=== PATIENT | female | born 1950 | race Caucasian/White ===

== ENCOUNTER 2017-06-14 04:12 | Emergency (ER) | payer BC ==
--- NOTE | 2017-06-14 04:29 | EDM.PDOC ---
ED HPI GENERAL MEDICAL PROBLEM - General Chief Complaint: Neck Problem Stated Complaint: [facility] Time Seen by Provider: 06/14/17 04:13 Source of Information: Reports: Patient, EMS History Limitations: Reports: Altered Mental Status (not oriented to time or place. ), Other (slow to answeer questions. Unsure waht has happened to her .) - History of Present Illness INITIAL COMMENTS - FREE TEXT/NARRATIVE: 67-year-old female brought to the ED by [facility] who intercepted with [facility]. Patient apparently collapsed at home. Was able to glean further information once her arrived. He reports that shortly before 3:00 this morning she came to his bedroom door. He is sleeping in the spare room is eased up so often checking calves this time of year. She asked Adelso did you call me and he reported to her that he had not. She then suddenly collapsed completely onto the carpeted floor face first I used syncopal episode with collapse. He jumped out of bed and attended her. He found her right arm to be fully extended while she was lying on the floor and it was rigid he could not move it. He had difficulty rolling over back onto her back. After this then she started to exhibit tonic-clonic movement of the right upper extremity he did notice that she had any tonic-clonic activity and any other extremity i.e. focal seizure. He states this lasted between 5 and 10 minutes. During this timeframe he recognized the need help and he got up and called 911. [facility] arrived on scene. Not witnessed any tonic-clonic activity of her arm at that time. She was unresponsive verbally. She would make the occasional moaning voice. En route to [facility] she began to come around and was able to slowly speak. She was disoriented to place and time and had no recollection of what happened to her. She started to speak more and become more understandable en route to [facility] according to the [facility] paramedics. Blood sugar on scene was 178. She is known to be a type II diabetic controlled with multiple medications. She has known renal insufficiency. She has known cardiac disease having had bypass surgery once in the past and known claudication symptoms due to peripheral vascular disease in her lower extremities. She therefore is a prime candidate for CVA. She has chronic hypertension and hypercholesterolemia. On initial evaluation in the ED she arrives a c-collar in place. She is able to answer a few questions slowly she was commands very well. She could move all of her extremities with coordinated effort. A stroke alert was called. She was therefore taken to CT suite immediately after my initial assessment. Initial vital signs reveal BP 126/76. Heart rate is 70 and sinus. O2 sats 97% on room air. Onset: Today Onset Date: 06/14/17 Onset Time: 02:55 Duration: Minutes: Location: Reports: Other (Syncope collapsed to the floor with focal seizure activity of the right upper extremity witnessed by her .) Severity: Moderate Improves with: Reports: Other (Nonverbal for about 10-15 minutes and started to become verbal en route to [facility] in the embolus.) Context: Reports: Trauma (Collapsed to the floor suddenly face first with no attempt to protect herself. Subsequent development of time the city rigidity of the right upper extremity and then development of tonic-clonic seizure activity that lasted between 5 and 10 minutes according to the ) Associated Symptoms: Reports: Confusion Treatments DIAMOND CLEAVER: Reports: Other (see below) (Patient has received no medications per paramedics.) - Related Data Allergies Allergy/AdvReac Type Severity Reaction Status Date / Time SEVERO Inhibitors Allergy Cough Verified 06/14/17 05:04 acetaminophen [From Ultracet] Allergy Dizziness Verified 06/14/17 05:04 baclofen Allergy Hallucinati Verified 06/14/17 05:04 ons codeine Allergy Itching Verified 06/14/17 05:04 fentanyl Allergy Itching Verified 06/14/17 05:04 fluoxetine [From Prozac] Allergy Rash Verified 06/14/17 05:04 meperidine [From Demerol] Allergy Itching Verified 06/14/17 05:04 morphine Allergy Itching Verified 06/14/17 05:04 oxycodone Allergy Hives Verified 06/14/17 05:04 tramadol [From Ultracet] Allergy Dizziness Verified 06/14/17 05:04 Home Meds: Home Meds Aspirin [Halfprin] 81 mg PO DAILY 06/14/17 [History] Fexofenadine [Hortencia] 180 mg PO DAILY 06/14/17 [History] Folic Acid 800 mcg PO DAILY 06/14/17 [History] Hydrochlorothiazide 12.5 mg PO DAILY 06/14/17 [History] Insulin Aspart [NovoLOG] 1 dose SQ ASDIRECTED 06/14/17 [History] Levothyroxine 25 mcg PO DAILY 06/14/17 [History] Metoprolol Succinate 50 mg PO DAILY 06/14/17 [History] Omeprazole 20 mg PO DAILY 06/14/17 [History] Rosuvastatin [Crestor] 40 mg PO DAILY 06/14/17 [History] Sertraline [Zoloft] 100 mg PO DAILY 06/14/17 [History] Sodium Bicarbonate 650 mg PO DAILY 06/14/17 [History] Ustekinumab [Stelara] 45 mg SQ ASDIRECTED 06/14/17 [History] Past Medical History Cardiovascular History: Reports: Bypass (Triple bypass with wound dehiscence.), High Cholesterol, Hypertension, PVD (Severe peripheral vascular disease.) Respiratory History: Reports: COPD Gastrointestinal History: Reports: GERD, Hiatal Hernia Genitourinary History: Reports: Chronic Renal Insuffiency, Urinary Incontinence (Some stress and urge components) Musculoskeletal History: Reports: Back Pain, Chronic (Chronic low back pain.), Osteoarthritis, Osteoporosis, Other (See Below) (Previous cervical neck fusion previous lumbar spine fusion) Psychiatric History: Reports: Addiction ( reports that she does drink alcohol in large quantities on a daily basis. Patient states she has 3 drinks per day he states more like 3 bottles per day.), Depression Endocrine/Metabolic History: Reports: Diabetes, Type II (On insulin for greater than 15 years for diabetic control.), Hypothyroidism (On levothyroxine) Dermatologic History: Reports: Psoriasis, Other (See Below) Social & Family History - Living Situation & Occupation Living situation: Reports: Occupation: Unemployed [facility] - Review of Systems Review Of Systems: See Below Constitutional: Reports: Malaise, Weakness, Fatigue. Denies: Weight Loss HEENT: Reports: Glasses. Denies: Hearing Loss Respiratory: Reports: Shortness of Breath, Wheezing, Cough (Occasional cough). Denies: Pleuritic Chest Pain (Occasional) Cardiovascular: Reports: Blood Pressure Problem, Dyspnea on Exertion ( Chronically), Lightheadedness (Occasional lightheadedness when she gets up too fast). Denies: Chest Pain, Claudication, Orthopnea (Controlled with medications ) Endocrine: Reports: Fatigue, High Glucose (Intermittent high glucoses greater than 200.) GI/Abdominal: Reports: Constipation (Intermittent positive constipation), Decreased Appetite : Reports: Frequency, Incontinence (Some stress and urge components) Musculoskeletal: Reports: Neck Pain (Running severe low back pain which limits her mobility some severely. Running neck pain. She's had previous cervical fusion C5-6 and 7 with pedicle screws), Back Pain (Chronic back pain which limits her mobility severely. Previous L-spine surgery unclear of hardware present) Skin: Reports: No Symptoms Neurological: Reports: Seizure (Set seizure tonight focal in nature involving right upper extremity.) Psychiatric: Reports: Depression Hematologic/Lymphatic: Reports: Easy Bleeding, Easy Bruising Immunologic: Reports: No Symptoms - Physical Exam Exam: See Below Exam Limited By: Other (Patient could answer questions but was slow to respond. She was accurate in her answers however. She has no recollection of what has happened to her tonight. provided most of the history. Perhaps faint smell of alcohol on her breath.) General Appearance: Alert, No Apparent Distress, Other (C-collar immobilization. ) Eye Exam: Bilateral Eye: Normal Inspection, Nystagmus (No nystagmus elicited.), PERRL (Gaze palsy.) Ears: Normal External Exam, Normal TMs Nose: Normal Inspection, Normal Mucosa, No Blood Throat/Mouth: Other. No: Evidence of Tongue Biting Head Exam: Scalp Hematoma (Left temporal scalp), Facial Swelling (Left periorbital ecchymoses developing. Hematoma present left temporal scalp. This measures 3 cm in diameter. No open lacerations.) Neck: Other Respiratory/Chest: Lungs Clear, Normal Breath Sounds, Chest Non-Tender, Decreased Breath Sounds (Decreased air entry to the lower 30% of lung acosta bilaterally. With the occasional expiratory wheeze.), Other (Obvious pain on from compression of her ribs or sternum.) Cardiovascular: Regular Rate, Rhythm, No Edema, No Gallop, No Murmur, No Rub, Other (Well-healed midline sternotomy incision. It's either been done twice or she had wound dehiscence as it is wider than normal. Sinus rhythm on monitor at 70/m). No: Normal Peripheral Pulses GI/Abdominal: Normal Bowel Sounds, Soft, Non-Tender, No Organomegaly Neuro Exam (Abbreviated): Alert, CN II-XII Intact, Normal Cognition, No Motor/ Sensory Deficits (She can move all limbs without any issues. She did appear to have mild ataxia of the right upper extremity on attempts to do finger to nose assessment. Mild pronator drift on the right side), Other (Babinski's were both downgoing). No: Oriented, Normal Gait DTR: 0: Bicep (R), Patella (R), Achilles (R), Achilles (L), 1+: Bicep (L), Patella (L) Back Exam: Other (She's had previous cervical spine surgery and lumbar spine surgery with well-healed scars. His abrasions or contusions to her back.) Extremities: Normal Inspection, Normal Range of Motion, Non-Tender, No Pedal Edema, Other (No evidence of dislocation or injury to right shoulder. Also able to lift both legs off the gurney with no difficulty holding them against gravity for 3 seconds.) Psychiatric: Flat Affect Skin Exam: Warm, Dry, Intact, Cool, Diaphoretic EKG INTERPRETATION EKG Date: 06/14/17 Time: 04:35 Rhythm: NSR Rate (Beats/Min): 70 [place]: LAD-Left [place] Deviation (Mild left axis deviation of -16) P-Wave: Present QRS: Other (Early R-wave transition suggesting right ventricular per Andrea/ septal hypertrophy pattern. Left ventricular hypertrophy pattern near Q-wave in 3 and aVF. Consider old inferior wall myocardial infarction) ST-T: Other QT: Prolonged (QT moderately prolonged) EKG Interpretation Comments: Abnormal ECG Course - Vital Signs Last Recorded V/S: Last Vital Signs Temp 35.9 C 06/14/17 04:13 Pulse 68 06/14/17 04:13 Resp 18 06/14/17 04:13 BP 118/58 L 06/14/17 04:13 Pulse Ox 97 06/14/17 04:13 - Orders/Labs/Meds Orders: Active Orders 24 hr Category Date Time Status EKG Documentation Completion [RC] STAT Care 06/14/17 05:52 Active Hoskins Catheter Insertion [Insert Urinary Catheter] [OM. Care 06/14/17 05:00 Ordered PC] Q24H Urinary Catheter Assessment [RC] ASDIRECTED Care 06/14/17 05:28 Active Cervical Spine wo Cont [CT] Stat Exams 06/14/17 04:26 Taken Head wo Cont [CT] Stat Exams 06/14/17 04:20 Taken PRO B-TYPE NATRIUR PEPT,BNPPRO [CHEM] Stat Lab 06/14/17 05:10 Ordered Labs: Laboratory Tests 06/14/17 06/14/17 06/14/17 Range/Units 03:17 04:17 04:17 WBC 7.26 (3.98-10.04) K/mm3 RBC 4.55 (3.98-5.22) M/mm3 Hgb 13.7 (11.2-15.7) gm/L Hct 41.4 (34.1-44.9) % MCV 91.0 (79.4-94.8) fl MCH 30.1 (25.6-32.2) pg MCHC 33.1 (32.2-35.5) g/dl RDW Std Deviation 49.3 H (36.4-46.3) fL Plt Count 132 L (182-369) K/mm3 MPV 9.9 (9.4-12.3) fl Neutrophils % (Manual) 55 (40-60) % Band Neutrophils % 0 (0-10) % Lymphocytes % (Manual) 25 (20-40) % Atypical Lymphs % 5 % Monocytes % (Manual) 4 (2-10) % Eosinophils % (Manual) 9 H (0.7-5.8) % Basophils % (Manual) 2 H (0.1-1.2) Platelet Estimate Adequate Plt Morphology Comment Normal Poikilocytosis 1+ slight Anisocytosis 1+ slight Microcytosis 1+ slight Macrocytosis 1+ slight Tear Drop Cells 1+ slight RBC Morph Comment Abnormal PT 11.4 (8.0-13.0) SECONDS INR 1.06 APTT 23 (22-36) SECONDS Sodium (136-145) mEq/L Potassium (3.5-5.1) mEq/L Chloride (98-107) mEq/L Carbon Dioxide (21-32) mEq/L Anion Gap (5-15) BUN (7-18) mg/dL Creatinine (0.55-1.02) mg/dL Est Cr Clr Drug Dosing Estimated GFR (MDRD) (>60) mL/min BUN/Creatinine Ratio (14-18) Glucose (80-115) mg/dL POC Glucose 136 H (80-115) mg/dL Calcium (8.5-10.1) mg/dL Magnesium (1.8-2.4) mg/dl Total Bilirubin (0.2-1.0) mg/dL AST (15-37) U/L ALT (14-59) U/L Alkaline Phosphatase (46-116) U/L CK-MB (CK-2) (0-3.6) ng/ml Troponin I (0.00-0.056) ng/mL Total Protein (6.4-8.2) g/dl Albumin (3.4-5.0) g/dl Globulin gm/dL Albumin/Globulin Ratio (1-2) Ethyl Alcohol (0.00) gm% 06/14/17 06/14/17 Range/Units 04:17 05:10 WBC (3.98-10.04) K/mm3 RBC (3.98-5.22) M/mm3 Hgb (11.2-15.7) gm/L Hct (34.1-44.9) % MCV (79.4-94.8) fl MCH (25.6-32.2) pg MCHC (32.2-35.5) g/dl RDW Std Deviation (36.4-46.3) fL Plt Count (182-369) K/mm3 MPV (9.4-12.3) fl Neutrophils % (Manual) (40-60) % Band Neutrophils % (0-10) % Lymphocytes % (Manual) (20-40) % Atypical Lymphs % % Monocytes % (Manual) (2-10) % Eosinophils % (Manual) (0.7-5.8) % Basophils % (Manual) (0.1-1.2) Platelet Estimate Plt Morphology Comment Poikilocytosis Anisocytosis Microcytosis Macrocytosis Tear Drop Cells RBC Morph Comment PT (8.0-13.0) SECONDS INR APTT (22-36) SECONDS Sodium 135 L (136-145) mEq/L Potassium 3.1 L (3.5-5.1) mEq/L Chloride 97 L (98-107) mEq/L Carbon Dioxide 26 (21-32) mEq/L Anion Gap 15.1 H (5-15) BUN 19 H (7-18) mg/dL Creatinine 1.7 H (0.55-1.02) mg/dL Est Cr Clr Drug Dosing TNP Estimated GFR (MDRD) 30 (>60) mL/min BUN/Creatinine Ratio 11.2 L (14-18) Glucose 163 H (80-115) mg/dL POC Glucose (80-115) mg/dL Calcium 9.2 (8.5-10.1) mg/dL Magnesium 2.0 (1.8-2.4) mg/dl Total Bilirubin 0.6 (0.2-1.0) mg/dL AST 67 H (15-37) U/L ALT 34 (14-59) U/L Alkaline Phosphatase 109 (46-116) U/L CK-MB (CK-2) 2.7 (0-3.6) ng/ml Troponin I < 0.017 (0.00-0.056) ng/mL Total Protein 6.9 (6.4-8.2) g/dl Albumin 3.2 L (3.4-5.0) g/dl Globulin 3.7 gm/dL Albumin/Globulin Ratio 0.9 L (1-2) Ethyl Alcohol 0.11 (0.00) gm% Meds: Medications Discontinued Medications Generic Name Dose Route Start Last Admin Trade Name Freq PRN Reason Stop Dose Admin Sodium Chloride 1,000 mls @ 50 mls/hr 06/14/17 04:45 06/14/17 04:56 Normal Saline IV 50 mls/hr ASDIRECTED DANIEL Administration Levetiracetam 500 mg/ Sodium 105 mls @ 400 mls/hr 06/14/17 05:02 06/14/17 05: 11 Chloride IV 06/14/17 05:16 400 mls/hr ONETIME ONE Administration Ondansetron HCl 4 mg 06/14/17 05:03 06/14/17 05:10 Zofran IVPUSH 06/14/17 05:04 4 mg ONETIME ONE Administration - Radiology Interpretation Free Text/Narrative:: 67-year-old female presents to the ED after having a sudden collapse at home which was witnessed by her . She fell face first onto carpeted floor and was under responsive. Minimal effort to protect herself. When he attended area identified at that the right upper extremity was rigid and had difficulty rolling around to her back. Once he did so she developed tonic-clonic activity of the right upper extremity that lasted between 5 and 10 minutes. He got up and called 911 during this timeframe. When he returned tonic-clonic activity started to ceci of the right upper extremity. After a period of time she was able to moan and groan a few times but she was not able to respond verbally. reported that she kept her eyes closed. [facility] and ambulance volunteers pectoralis and appropriately asked for a intercept with [facility] paramedics. [facility] and emesis personnel indicate that en route to [facility] she started to be able to speak a little bit that was discernible. She of course had no recollection of what happened to her was March oriented to time and place. Sugar checked on scene was 178. She is a known type II diabetic controlled with insulin. Vital signs were stable en route to [facility] with BP 130/82. Heart rate was sinus in the 70s. Upon arrival in the ED she was able to answer some questions although a little little bit slower than normal. She was accurate in her answers. She of course has some head pain where she has struck her left periorbital area and left scalp. She had a left scalp hematoma measuring 3 cm over the temporal lobe. Cranial nerves II-12 are otherwise intact. She's had bilateral cataract extractions and intraocular lens implants. She has a c-collar in place and it was left in place to the nature of her fall. She's had previous C-spine fusion according to her she could move all limbs purposely although she had trouble on finger to nose assessment I ataxia of the right upper extremity and also mild pronator drift on the right side. Her menses were both downgoing. She was taken to the CT suite immediately where she had CT scan of her head and neck. CT of the head reveals multiple subdural hematomas dentist lesion is in the left temporal scalp correlating with her most recent fall. There is also evidence of intracranial bleeding I believe in the left temporal cortex. However there are evidence of subarachnoid hemorrhages bilateral frontal lobes and interhemispheric region left temporal lobe posterior left perimesencephalic cistern and to a lesser extent in the suprasellar cistern and right temporal lobe. No midline shift or mass effect is evident. Appears be mild generalized cerebral volume loss. Patchy hypoattenuation demonstrated within both cerebellar hemispheres representing chronic ischemic changes. There is severe atherosclerotic calcification of the cavernous segments of the bilateral internal carotid arteries as well as the intracranial vertebral arteries. CT of the cervical spine shows evidence of previous surgery with pedicle screws C5 C6 C7 and these bones of essentially grown together. There is an abnormality of the body of C4 which appears to be surgical.It appears to be chronic. Is a soft tissue mass adjacent to the level of surgical fixation no fractures were identified. Loss of lordotic curvature appreciated c-collar will remain in place. Patient be transferred to [facility] per 's request as this where she has had all of her surgeries carried out. The history supplied by him suggest that she drinks alcohol on a daily basis and much more I think that he recognizes. Patient admits to 3 drinks per day he reports probably 3 bottles of wine per day. If called to explain multiple subdurals she' s been falling quite often and he is not aware of this. She could be October anticoagulated from liver disease from chronic alcoholism as well. She takes a baby aspirin daily. Plan she'll be given Keppra 500 mg IV to try and prevent any further seizure activity. Zofran 4 mg IV for nausea relief. She'll be transported to [facility] per ground ambulance. - Re-Assessments/Exams Free Text/Narrative Re-Assessment/Exam: 06/14/17 06:05 Labs are back. White count was 7.26 with 55% neutrophils and no bands reported. Hemoglobin is 13.7 hematocrit of 41.4. MCV is normal at 91. Lactic count 132,000. Of note differential shows 9% eosinophils which is high. There is 1+ poikilocytosis 1+ an isodose cytosis. 1+ microcytosis. 1+ macrocytosis. 1+ teardrop cells. This suggests splenomegaly. PT is 11.4 INR is 1.06. PTT is 23. Sodium was slightly low at 135 potassium is low at 3.1.. Chloride 97 with a bicarbonate of 26. Anion gap is 15.1. BUNs 19. Creatinine elevated at 1.7. GFR is very low at 30 i.e. stage 3 chronic kidney disease. Glucose is 163. At the bedside was 136. Calcium 9.2. Magnesium normal at 2.0. Total bilirubin 0.6. AST is 67. ALT is 34. Alkaline phosphatase normal at 109. CK-MB fraction 2.7. Troponin I is less than 0.017. Total protein is 6.9. Albumin fraction slightly low at 3.2. Blood alcohol is 0.11 g percent. Apparently her last drink was before she went to bed. Departure - Departure Time of Disposition: 05:33 Disposition: DC/Tfer to Acute Hospital 02 Condition: Serious Clinical Impression: Focal motor seizure disorder, Acute subdural hematoma - Discharge Information Forms: ED Department Discharge - My Orders Last 24 Hours: My Active Orders 06/14/17 04:20 Head wo Cont [CT] Stat 06/14/17 04:26 Cervical Spine wo Cont [CT] Stat 06/14/17 05:00 Hoskins Catheter Insertion [Insert Urinary Catheter] [OM.PC] Q24H 06/14/17 05:10 PRO B-TYPE NATRIUR PEPT,BNPPRO [CHEM] Stat 06/14/17 05:28 Urinary Catheter Assessment [RC] ASDIRECTED 06/14/17 05:52 EKG Documentation Completion [RC] STAT - Assessment/Plan Last 24 Hours: My Active Orders 06/14/17 04:20 Head wo Cont [CT] Stat 06/14/17 04:26 Cervical Spine wo Cont [CT] Stat 06/14/17 05:00 Hoskins Catheter Insertion [Insert Urinary Catheter] [OM.PC] Q24H 06/14/17 05:10 PRO B-TYPE NATRIUR PEPT,BNPPRO [CHEM] Stat 06/14/17 05:28 Urinary Catheter Assessment [RC] ASDIRECTED 06/14/17 05:52 EKG Documentation Completion [RC] STAT
[2017-06-14] MEDS ORDERED: Sodium Chloride 0.9% 1,000 ML IV SCH (04:45)
[2017-06-14] MEDS ORDERED: levETIRAcetam 500 MG in Sodium Chloride 0.9% 100 ML IV ONE (05:02)
[2017-06-14] MEDS ORDERED: Ondansetron 4 MG/2 ML SDV IVPUSH ONE (05:03)
--- NOTE | 2017-06-14 12:39 | CT ---
Head CT Technique: Multiple axial sections through the brain were obtained. Intravenous contrast was not utilized. Comparison: No prior intracranial imaging. Findings: Small parenchymal hemorrhages are seen within both frontal lobes, more prominent on the left side. Small amount of subarachnoid blood is also seen in the left temporal region. Blood is seen along the interhemispheric fissure. Small amount of subarachnoid blood seen within the suprasellar cistern. Small amount of subarachnoid blood seen within the perimesencephalic cistern on the left side. Soft tissue swelling is seen within the left frontal scalp. No midline shift is seen. Atherosclerotic calcification within the vertebral vessels and carotid siphon is seen. Mild diminished density noted within the periventricular and within the cerebellar white matter compatible with small vessel ischemic demyelination change. Paranasal sinuses are clear. No acute calvarial abnormality is seen. Impression: 1. Multiple small areas of hemorrhage as noted above. Soft tissue swelling within the left frontal scalp. 2. Mild senescent change as noted above. Diagnostic code #5 I agree with preliminary report from [facility], finalized at 06/14/17, 5:49 AM Central Time
--- NOTE | 2017-06-14 12:39 | CT ---
CT cervical spine Technique: Multiple axial sections were obtained from above C1 inferiorly to the bottom of T3. Reconstructed sagittal and coronal images were reviewed. Comparison: No previous study. Findings: Degenerative change is noted between the dens and anterior arch of C1. Anterior plate and screws are seen within C5, C6 and C7. Prominent amount of bone is seen anterior to the vertebral body of C4 which appears unattached but is incidental. Posterior spurring noted at C5-C6 and C6-C7 as well as calcification within a posterior bulging disc at C4-C5. Diffuse degenerative change noted throughout the apophyseal joints. No cervical spine fracture is seen. Mild left sided neural foraminal stenosis noted at C6-C7. Mild to moderate bilateral neural foraminal stenosis noted at C5-C6. Mild left-sided neural foraminal stenosis noted at C4-C5. No abnormal subluxation is seen. Impression: 1. Degenerative change and previous surgery. 2. Nothing acute is appreciated on CT study of the cervical spine. Diagnostic code #3 I agree with preliminary report from [facility], finalized at 06/14/17, 6:36 AM Central Time
== END 2017-06-14 05:26 ==
LOC: JD.ED 04:12
DX: G40.109 Localization-related (focal) (partial) symptomatic epilepsy and epileptic syndromes with simple partial seizures, not intractable, without status epilepticus (principal); S06.5X9A Traumatic subdural hemorrhage with loss of consciousness of unspecified duration, initial encounter; S00.03XA Contusion of scalp, initial encounter; J44.9 Chronic obstructive pulmonary disease, unspecified; E78.00 Pure hypercholesterolemia, unspecified; K21.9 Gastro-esophageal reflux disease without esophagitis; I12.9 Hypertensive chronic kidney disease with stage 1 through stage 4 chronic kidney disease, or unspecified chronic kidney disease; E11.22 Type 2 diabetes mellitus with diabetic chronic kidney disease; N18.9 Chronic kidney disease, unspecified; E03.9 Hypothyroidism, unspecified; Z79.4 Long term (current) use of insulin; Z79.82 Long term (current) use of aspirin; Z79.899 Other long term (current) drug therapy; Z88.5 Allergy status to narcotic agent; Z88.6 Allergy status to analgesic agent; Z88.8 Allergy status to other drugs, medicaments and biological substances; Z95.1 Presence of aortocoronary bypass graft; W19.XXXA Unspecified fall, initial encounter
CPT/HCPCS: 36415; 51702; 70450; 72125; 80053; 82553; 82962; 83735; 83880; 84484; 85025; 85610; 85730; 96374; 96375; 99285; G0480; J1953; J2405; J7030; J7040

== ENCOUNTER 2021-05-01 06:46 | Emergency (ER) | payer BC, MEDICARE ==
[2021-05-01 10:39] LABS: CORONAVIRUS COVID-19 NAA POSITIVE (NEGATIVE)
[2021-05-01] MEDS ORDERED: Famotidine 20 MG/2 ML SDV IVPUSH PRN (12:17)
[2021-05-01] MEDS ORDERED: methylPREDNISolone Sodium Succinate 125 MG/2 ML SDV IVPUSH PRN (12:17)
[2021-05-01] MEDS ORDERED: diphenhydrAMINE 50 MG/ML SDV IVPUSH PRN (12:17)
[2021-05-01] MEDS ORDERED: EPINEPHrine 1 MG/ML SDV IM PRN (12:17)
[2021-05-01] MEDS ORDERED: Sodium Chloride 0.9% 10 ML Syringe FLUSH SCH (12:30)
== END 2021-05-01 15:00 | disposition home or self-care (01) ==
LOC: JD.ED 06:46
DX: U07.1 COVID-19 (principal); J12.82 Pneumonia due to coronavirus disease 2019; J44.9 Chronic obstructive pulmonary disease, unspecified; E78.00 Pure hypercholesterolemia, unspecified; I10 Essential (primary) hypertension; E11.9 Type 2 diabetes mellitus without complications; M19.90 Unspecified osteoarthritis, unspecified site; Z88.5 Allergy status to narcotic agent; Z88.8 Allergy status to other drugs, medicaments and biological substances; Z79.82 Long term (current) use of aspirin; Z79.899 Other long term (current) drug therapy
CPT/HCPCS: 0240U; 36415; 71045; 80053; 82728; 83615; 83880; 84484; 85007; 85027; 85379; 86140; 93005; 99285; M0247; Q0247